=== PATIENT | female | born 1990 | race Caucasian/White ===

== ENCOUNTER 2022-06-16 14:33 | Emergency (ER) | payer OTHER, SELFPAY ==
[2022-06-16 14:34] VITALS: BP 167/97; PULSE 98; RESP 18; TEMP 36.8; O2SAT 100
--- NOTE | 2022-06-16 15:00 | ED.ALLEREA ---
HPI - Allergic Reaction General Chief complaint: Allergic Reaction Stated complaint: Allergic Reaction Time Seen by Provider: 06/16/22 14:50 History of Present Illness HPI narrative: 31-year-old female presents the emergency room for evaluation of rash and allergic reaction. Patient states on she was seen in urgent care for right ear pain, and was diagnosed with an ear infection. Patient began taking amoxicillin on Thursday. Noticed later that day that she developed a rash. Was seen at urgent care again on Thursday and was given azithromycin, and states that she developed the rash again today. Patient states since Thursday she has been taking Benadryl on a regular basis until last night. Reports the rash reappeared today around 12. Also reports a numbness and tingling sensation to her bottom lip. Denies any difficulty breathing or shortness of breath. Related Data Allergies Allergy/AdvReac Type Severity Reaction Status Date / Time morphine Allergy Unknown Itching Verified 06/16/22 14:37 doxycycline Allergy Unknown Verified 06/16/22 14:37 adhesive AdvReac Unknown Unknown Verified 06/16/22 14:37 Review of Systems Review of Systems: CONSTITUTIONAL: Denies fever, chills, or sweats. EYES: Denies visual changes, redness, or discharge. ENT: Denies rhinorrhea, congestion, sore throat, or otalgia. CARDIOVASCULAR: Denies chest pain, palpitations, or edema. RESPIRATORY: Denies cough or dyspnea. GASTROINTESTINAL: Denies abdominal pain, nausea, vomiting, or diarrhea. GENITOURINARY: Denies dysuria or hematuria. SKIN: Reports rash MUSCULOSKELETAL: Denies back pain, joint pain, or myalgia. NEUROLOGIC: Denies headache, numbness, dizziness, or weakness. PSYCHIATRIC: Denies anxiety or depression. PMFSH Family History Family History Sibling Asthma Mother Patient's mother is in good health Father Patient's father is in good health Family history of diabetes mellitus in first degree relative Social History Social History Smoking status: Never smoker Alcohol intake: never Exam Narrative: GENERAL: Well-appearing, well-nourished, no physical limitations, and in no acute distress. HEAD: Normocephalic, atraumatic. EYES: Conjunctivae normal, PERRLA and EOMI. ENT: External nose normal, Nares clear, no rhinorrhea or epistaxis. Mucous membranes moist. Oropharynx without tonsillar hypertrophy exudate or other lesions. External ears normal, bilateral TMs normal bilaterally. Clear effusion noted to right TM with no erythema CHEST: Clear to auscultation. No respiratory distress. No wheezes rales or rhonchi. HEART: Regular rate and rhythm. No murmur heard. Normal peripheral pulses. EXTREMITIES: Normal range of motion. No edema. No clubbing or cyanosis SKIN: Warm, dry, diffuse maculopapular erythematous rash to bilateral arms NEURO: No focal deficits. Alert and oriented x3. MAEW. CN's II-XI intact bilaterally, normal gait PSYCH: Cooperative. Normal mood and affect. Course Vital Signs Vital signs: Vital Signs Temperature 36.8 C 06/16/22 14:34 Pulse Rate 98 06/16/22 14:34 Respiratory Rate 18 06/16/22 14:34 Blood Pressure 167/97 H 06/16/22 14:34 Pulse Oximetry 100 06/16/22 14:34 Temperature 36.8 C 06/16/22 14:34 Pulse Rate 98 06/16/22 14:34 Respiratory Rate 18 06/16/22 14:34 Blood Pressure 167/97 H 06/16/22 14:34 Pulse Oximetry 100 06/16/22 14:34 Discharge Plan Discharge Clinical Impression: Allergic reaction, Serous otitis media Patient Disposition: Home, Self-Care Condition: Stable Instructions: Antibiotic Form, Acute Rash (ED), Earache (ED) Prescriptions: New prednisone 20 mg tablet 40 mg PO DAILY 5 Days Qty: 10 0RF pseudoephedrine HCl 60 mg tablet 60 mg PO Q4-6H PRN (Reason: nasal congestion) Qty: 20 0RF Rx Instructions: DNExceed 4 doses/24h
[2022-06-16] MEDS: SODIUM CHLORIDE 0.9% IV 1,000 ML 999 ML IV CONT (15:12)
[2022-06-16] MEDS: diphenhydrAMINE HCl INJ 50 MG/ML VIAL 25 MG IV PUSH (15:13)
[2022-06-16] MEDS: methylPREDNISolone SOD SUCC 125 MG VIAL IV PUSH (15:15)
[2022-06-16] MEDS: FAMOTIDINE 20 MG/2 ML VIAL IV PUSH (15:17)
[2022-06-16 16:56] VITALS: BP 142/78; PULSE 76; RESP 18; O2SAT 99
== END 2022-06-16 16:57 | disposition home or self-care (01) ==
PROVIDERS: Emergency Provider Nurse Practitioner Family
DX: T78.40XA Allergy, unspecified, initial encounter (principal); H65.91 Unspecified nonsuppurative otitis media, right ear
CPT/HCPCS: 96361; 96374; 96375; 99284; J1200; J2930; J7030

== ENCOUNTER 2023-05-30 12:02 | Emergency (ER) | payer OTHER, SELFPAY ==
[2023-05-30] VITALS (37 sets, daily range): BP systolic 118–157; BP diastolic 62–88; PULSE 65–93; RESP 13–20; TEMP 36.7; O2SAT 96–100
--- NOTE | ~2023-05-30 | US_ITS ---
EXAMINATION: US abdomen limited DATE: 05/30/2023 15:51 INDICATION: RUQ pain TECHNIQUE: Multiple grayscale and Doppler ultrasound images of limited portions of the abdomen were o btained. COMPARISON: None available. FINDINGS: Exam limited by body habitus. Pancreas not visualized. The liver is normal with normal echo genicity and echotexture. No surface nodularity. Normal hepatopetal flow in the main portal vein. The gallbladder wall measures 4 mm. Multiple irregular nonshadowing, nonmobile echogenic foci noted kevin g the gallbladder wall. The common bile duct measures 4 mm. There was no sonographic Duffy sign. IMPRESSION: Pancreas not visualized. Gallbladder wall thickening to 4 mm. Negative sonographic Duffy sign. Nonmobile echogenic gallbladder wall foci may represent adherent stones, polyps, or adenomyosis. Reviewed, dictated and finalized at [facility]. IMPRESSION: Pancreas not visualized. Gallbladder wall thickening to 4 mm. Negative sonographic Duffy sign. Nonmobile echogenic gallbladder wall foci may represent adherent stones, polyps , or adenomyosis.
--- NOTE | ~2023-05-30 | XR_ITS ---
XR chest 2V DATE: 05/30/2023 12:42 INDICATION: Substernal and right chest pain TECHNIQUE: PA and lateral the COMPARISON: 08/17/2017 PA and lateral chest FINDINGS: Normal heart size. No hilar or mediastinal enlargement. No pulmonary infiltrate or consolid ation, pleural effusion or pulmonary vascular congestion or pneumothorax. Included skeletal structure s are unremarkable. IMPRESSION: Negative Reviewed, dictated and finalized at location [facility]. IMPRESSION: Negative
--- NOTE | 2023-05-30 12:04 | ECG_ITS ---
Measurements Intervals [place] Rate: 91 P: 57 ND: 156 QRS: 10 QRSD: 90 T: 31 QT: 342 QTc: 422 Interpretive Statements SINUS RHYTHM LOW QRS VOLTAGE IN PRECORDIAL LEADS BORDERLINE ECG NO PREVIOUS ECG AVAILABLE FOR COMPARISON Electronically Signed On 05-30-2023 16:35:17 CDT by Boyd Minor D.O.
[2023-05-30 13:02] LABS: Basophils Percent Auto 0.2 % (0.2-1.2); Hematocrit 38.3 % (37.0-47.0); Hemoglobin 12.5 g/dL (12.0-15.0); Immature Granulocyte Absolute 0.02 K/mm3 (0.00-0.031); Immature Granulocyte Percent A 0.2 % (0-0.5); Lymphocytes Absolute Auto 1.78 K/mm3 (0.9-3.2); Lymphocytes Percent Auto 21.8 % (18.3-44.2); Mean Corpuscular HGB Conc 32.6 g/dl (32-36); Mean Corpuscular Volume 79.6 fl (80-100); Mean Platelet Volume 10.7 fl (7.4-10.4); Monocytes Absolute Auto 0.4 K/mm3 (0.1-0.6); Neutrophils Absolute Auto 5.9 K/mm3 (1.3-6.7); Neutrophils Percent Auto 72.8 % (45.5-73.1); Platelet Count Result 221 k/mm3 (150-375); Red Blood Count 4.81 M/mm3 (4.2-5.4); Red Cell Distribution Width 14.1 % (11.5-14.5); White Blood Count 8.2 K/mm3 (4.5-10.0)
[2023-05-30] MEDS: ASPIRIN 81 MG CHEWABLE TABLET 324 MG PO (13:06)
[2023-05-30 13:12] LABS: Prothrombin Time 13.9 Seconds (11.1-14.7)
[2023-05-30 13:13] LABS: Partial Thromboplastin Time 29.8 SECONDS (22.3-36.8)
[2023-05-30 13:26] LABS: Anion Gap 8 mmol/L (8-16); Blood Urea Nitrogen 19 mg/dL (7-17); Carbon Dioxide 27 mmol/L (22-30); Chloride 99 mmol/L (98-107); Estimated CRCL calculation 157 ml/min; Estimated Glomerular Filt Rate > 60; Potassium 4.3 mmol/L (3.4-5.0); Sodium 134 mmol/L (137-145)
[2023-05-30 13:27] LABS: Alanine Aminotransferase 19 U/L (6-35); Albumin Level 4.5 g/dL (3.5-5.1); Alkaline Phosphatase 73 U/L (38-126); Aspartate Amino Transferase 24 U/L (14-36); Bilirubin,Total 0.4 mg/dL (0.2-1.3); Glucose 253 mg/dL (65-110); Lipase 66 U/L (23-300)
[2023-05-30 13:38] LABS: Troponin I < 0.012 ng/mL (0.000-0.034)
--- NOTE | 2023-05-30 14:43 | ED.GENADULT ---
HPI - General Adult General Chief complaint: Chest Pain Stated complaint: chest pain Time Seen by Provider: 05/30/23 13:05 Source: patient and RN notes reviewed Mode of arrival: ambulatory Limitations: no limitations History of Present Illness HPI narrative: This is a 32 year old female with history of type 1 DM who presents for evaluation of right upper abdominal pain that radiated to her epigastrium. She reports pain last approximately 4 hours from 7 am to 1100. She describes pain as she felt she could not get in comfortable position. She took ibuprofen at 8 am. Her pain has completely resolved. She denies shortness of breath, cough, fever, vomiting, or urinary symptoms. She denies any thing that made pain worse. She denies gallbladder disease. Related Data Allergies Allergy/AdvReac Type Severity Reaction Status Date / Time morphine Allergy Unknown Itching Verified 05/30/23 12:32 amoxicillin [From Augmentin] Allergy Dry Mucus Verified 05/30/23 12:32 Membranes clavulanic acid Allergy Dry Mucus Verified 05/30/23 12:32 [From Augmentin] Membranes doxycycline Allergy Unknown Verified 05/30/23 12:32 adhesive AdvReac Unknown Unknown Verified 05/30/23 12:32 Review of Systems Constitutional: Constitutional: Denies weakness Cardiovascular: Cardiovascular: Denies syncope, Denies rapid heart rate, Denies irregular heart rhythm, Denies leg edema and Denies dyspnea Respiratory: Respiratory: Denies chest congestion, Denies hemoptysis, Denies excessive phlegm production and Denies dyspnea Gastrointestinal: Gastrointestinal: Denies hematochezia, Denies diarrhea and Denies vomiting Genitourinary: Genitourinary: Denies hematuria and Denies dysuria Musculoskeletal: Musculoskeletal: Denies joint swelling, Denies loss of height and Denies muscle weakness Neurologic: Denies syncope, Denies focal weakness and Denies weakness PMFSH Past Medical History Medical History (Updated 05/30/23 @ 17:08 by Leyla Arvizu MD) DM type 1 (diabetes mellitus, type 1) Family History Family History Sibling Asthma Mother Patient's mother is in good health Father Patient's father is in good health Family history of diabetes mellitus in first degree relative Social History Social History Smoking status: Never smoker Alcohol intake: never Exam Const: General: no acute distress and alert Nutritional Appearance: obese Orientation/consciousness: patient oriented x3 HENMT: Head: normal to inspection Mouth: Yes Normal oral and palatal mucosa present, Yes lip normal and Yes moist mucous membranes Throat: posterior oropharynx normal Eyes: Conjunctivae: conjunctivae normal Pupils: Equal, round and reactive pupils present EOM: EOMs intact bilaterally Neck: Neck: normal visual inspection Chest: Chest palpation & inspection: normal inspection of the chest Resp: Effort & Inspection: normal respiratory effort Auscultation: clear to auscultation bilaterally Cardio: Rate: regular rate Rhythm: regular rhythm Heart sounds: no murmurs GI: GI Palp: Yes Soft to palpation, Yes Tenderness to palpation present (GI) (mild RUQ), No Guarding due to palpation present (GI), No Rigid due to palpation and No Hernia present Auscultation: normal bowel sounds Back/Spine/Pelvis: Back: no CVA tenderness Skin: General skin exam: normal color Rashes: no rashes Wounds: no wounds Neuro: General: patient oriented x3, moves all extremities and CN's II-XI intact bilaterally Extrem: General: normal to inspection Psych: Mental Status: mental status grossly normal Affect: normal affect Attitude: cooperative Course Reevaluation(s) Date: 05/30/23 Time: 17:07 Vital Signs Vital signs: Vital Signs Temperature 98.1 F 05/30/23 12:06 Pulse Rate 91 05/30/23 12:06 Respiratory Rate 18 05/30/23 12:06 Blood Pressure 149/7
[2023-05-30 16:00] LABS: Appearance Urine Clear (Clear); Bacteria Urine 4+ /hpf; Bilirubin Urine Negative (Negative); Blood Urine Negative (Negative); Color Urine Yellow (Yellow); Glucose Urine UA 2+ mg/dL (Negative); Ketones Urine Negative (Negative); Leukocyte Esterase Ur Trace LEU/UL (Negative); Nitrate Urine Positive (Negative); Non Pathogenic Casts 0-2; Protein Urine Negative (Negative); RBC Urine 0-2 /hpf (0-2); Specific Grav Ur 1.015 (1.001-1.035); Squamous Epithelial Cell Urine Few /hpf (Few); Urobilinogen Urine 0.2 mg/dL (<2.0); WBC Urine 0-5 /hpf
[2023-05-30 16:04] LABS: Troponin I < 0.012 ng/mL (0.000-0.034)
[2023-05-30 16:12] LABS: Add Urine Microscopic? YES
== END 2023-05-30 17:30 | disposition home or self-care (01) ==
PROVIDERS: Emergency Medicine; Emergency Provider General Practice; PCP Nurse Practitioner Family
DX: R07.89 Other chest pain (principal); R10.11 Right upper quadrant pain; N39.0 Urinary tract infection, site not specified; E10.9 Type 1 diabetes mellitus without complications
CPT/HCPCS: 36415; 71046; 76705; 80053; 81001; 81025; 83690; 84484; 85025; 85610; 85730; 93005; 99284; A9270